=== PATIENT | female | born 1940 | race Two or more races ===

== ENCOUNTER 2018-09-20 11:33 | Emergency (ER) | payer MEDICARE, MEDICAID ==
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
[2018-09-20 14:42] LABS: APPEARANCE,URINE SLIGHTLY-CLOUDY; BILIRUBIN,URINE NEGATIVE (NEGATIVE); COLOR,URINE YELLOW; GLUCOSE, URINE NEGATIVE (NEGATIVE); KETONES,URINE TRACE mg/dL (NEGATIVE); LEUKOCYTE ESTERASE,URINE NEGATIVE (NEGATIVE); NITRITE,URINE NEGATIVE (NEGATIVE); PROTEIN,URINE NEGATIVE (NEGATIVE); URINE SPECIFIC GRAVITY 1.025
[2018-09-20 15:23] LABS: ABSOLUTE BASOPHILS # (AUTO) 0.1 10^3/uL (0.0-0.2); ABSOLUTE EOSINOPHILS # (AUTO) 0.3 10^3/uL (0.0-0.6); ABSOLUTE LYMPHOCYTES (AUTO) 1.6 10^3/uL (0.5-4.7); ABSOLUTE MONOCYTES (AUTO) 0.4 10^3/uL (0.1-1.4); ABSOLUTE NEUT (AUTO) 4.7 10^3/uL (1.7-8.2); BASOPHILS % (AUTO) 0.7 % (0-2); EOSINOPHILS % (AUTO) 3.6 % (0-6); HEMATOCRIT 38.9 % (36.0-47.0); HEMOGLOBIN 13.1 g/dL (12.0-15.5); LYMPHOCYTES % (AUTO) 22.5 % (13-45); MEAN CORPUSCULAR HEMOGLOBIN 31.4 pg (27.0-33.4); MEAN CORPUSCULAR HGB CONC 33.6 g/dL (32.0-36.0); MEAN CORPUSCULAR VOLUME 93 fl (80-97); MONOCYTES % (AUTO) 5.7 % (3-13); PLATELET COUNT 231 10^3/uL (150-450); RED BLOOD COUNT 4.17 10^6/uL (3.72-5.28); RED CELL DISTRIBUTION WIDTH 14.5 % (11.5-14.0); SEGMENTED NEUTROPHILS % (AUTO) 67.5 % (42-78); TOTAL CELLS COUNTED % (AUTO) 100 %
[2018-09-20 15:41] LABS: ALANINE AMINOTRANSFERASE 25 U/L (9-52); ALBUMIN 3.9 g/dL (3.5-5.0); ALKALINE PHOSPHATASE 89 U/L (38-126); ANION GAP 8 (5-19); ASPARTATE AMINO TRANSFERASE 16 U/L (14-36); BILIRUBIN,DIRECT 0.2 mg/dL (0.0-0.4); BILIRUBIN,TOTAL 0.3 mg/dL (0.2-1.3); BLOOD UREA NITROGEN 24 mg/dL (7-20); CALCIUM 9.3 mg/dL (8.4-10.2); CARBON DIOXIDE 28 mmol/L (22-30); CHLORIDE 104 mmol/L (98-107); GLUCOSE 130 mg/dL (75-110); POTASSIUM 3.8 mmol/L (3.6-5.0); SODIUM 139.6 mmol/L (137-145); TOTAL PROTEIN 6.7 g/dL (6.3-8.2)
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
[2018-09-20 19:25] VITALS: BP 142/83
== END 2018-09-20 19:31 | disposition home or self-care (01) ==
LOC: ER 11:33
DX: T76.21XA Adult sexual abuse, suspected, initial encounter (principal); F03.90 Unspecified dementia, unspecified severity, without behavioral disturbance, psychotic disturbance, mood disturbance, and anxiety; Z87.891 Personal history of nicotine dependence
CPT/HCPCS: 36415; 80053; 81001; 84443; 85025; 99285

== ENCOUNTER 2018-11-30 16:38 | Emergency (ER) | payer MEDICARE, MEDICAID ==
[2018-11-30 18:10] LABS: ABSOLUTE EOSINOPHILS # (AUTO) 0.3 10^3/uL (0.0-0.6); ABSOLUTE LYMPHOCYTES (AUTO) 0.8 10^3/uL (0.5-4.7); ABSOLUTE MONOCYTES (AUTO) 0.4 10^3/uL (0.1-1.4); ABSOLUTE NEUT (AUTO) 5.9 10^3/uL (1.7-8.2); BASOPHILS % (AUTO) 0.4 % (0-2); EOSINOPHILS % (AUTO) 3.5 % (0-6); HEMATOCRIT 37.3 % (36.0-47.0); HEMOGLOBIN 12.6 g/dL (12.0-15.5); LYMPHOCYTES % (AUTO) 10.7 % (13-45); MEAN CORPUSCULAR HEMOGLOBIN 31.5 pg (27.0-33.4); MEAN CORPUSCULAR HGB CONC 33.8 g/dL (32.0-36.0); MEAN CORPUSCULAR VOLUME 93 fl (80-97); MONOCYTES % (AUTO) 5.9 % (3-13); PLATELET COUNT 229 10^3/uL (150-450); RED CELL DISTRIBUTION WIDTH 14.6 % (11.5-14.0); SEGMENTED NEUTROPHILS % (AUTO) 79.5 % (42-78); TOTAL CELLS COUNTED % (AUTO) 100 %; WHITE BLOOD COUNT 7.4 10^3/uL (4.0-10.5)
[2018-11-30 18:13] LABS: APPEARANCE,URINE CLEAR; BILIRUBIN,URINE NEGATIVE (NEGATIVE); COLOR,URINE YELLOW; GLUCOSE, URINE NEGATIVE (NEGATIVE); KETONES,URINE NEGATIVE (NEGATIVE); LEUKOCYTE ESTERASE,URINE NEGATIVE (NEGATIVE); NITRITE,URINE NEGATIVE (NEGATIVE); PROTEIN,URINE NEGATIVE (NEGATIVE); URINE SPECIFIC GRAVITY 1.024
[2018-11-30 18:28] LABS: URINE AMPHETAMINES SCREEN NEGATIVE; URINE BARBITURATES SCREEN NEGATIVE; URINE BENZODIAZEPINES SCREEN NEGATIVE; URINE COCAINE SCREEN NEGATIVE; URINE MARIJUANA (THC) SCREEN NEGATIVE; URINE METHADONE SCREEN NEGATIVE; URINE PHENCYCLIDINE SCREEN NEGATIVE
[2018-11-30 18:33] LABS: ALANINE AMINOTRANSFERASE 22 U/L (9-52); ALBUMIN 3.6 g/dL (3.5-5.0); ALKALINE PHOSPHATASE 71 U/L (38-126); ANION GAP 7 (5-19); ASPARTATE AMINO TRANSFERASE 14 U/L (14-36); BILIRUBIN,DIRECT 0.3 mg/dL (0.0-0.4); BILIRUBIN,TOTAL 0.4 mg/dL (0.2-1.3); BLOOD UREA NITROGEN 29 mg/dL (7-20); CALCIUM 9.7 mg/dL (8.4-10.2); CARBON DIOXIDE 26 mmol/L (22-30); CHLORIDE 106 mmol/L (98-107); GLUCOSE 98 mg/dL (75-110); POTASSIUM 3.7 mmol/L (3.6-5.0); SODIUM 139.3 mmol/L (137-145); TOTAL PROTEIN 6.7 g/dL (6.3-8.2)
[2018-11-30 18:34] LABS: ACETAMINOPHEN < 10 ug/mL (10-30); ALCOHOL < 10 mg/dL (NONE DETECTED); SALICYLATE < 1.0 mg/dL (2.0-20.0)
--- NOTE | 2018-11-30 20:15 | EKG REPORT ---
SEVERITY:- NORMAL ECG - SINUS RHYTHM : Confirmed by: Nazanin Varghese MD 30-Nov-2018 20:14:13
--- NOTE | 2018-11-30 23:58 | ER Document Report ---
Addendum entered and electronically signed by RONAN MERINO DO 12/01/18 11:21: Course - Re-evaluation Re-evalutation: 12/01/18 11:20 Patient was seen and evaluated. No acute issues at this time. According to mental health she is cleared at this time to be discharged. We will proceed with discharge planning at this time. - Vital Signs Vital signs: Temp Pulse Resp BP Pulse Ox 98.1 F 60 16 141/45 H 100 12/01/18 04:30 12/01/18 04:30 12/01/18 04:30 12/01/18 04:30 12/01/18 04:30 - Laboratory Result Diagrams: 11/30/18 17:35 11/30/18 17:35 Laboratory results interpreted by me: 11/30/18 11/30/18 11/30/18 17:35 17:35 17:35 RDW 14.6 H Seg Neutrophils % 79.5 H Lymphocytes % 10.7 L BUN 29 H Urine Urobilinogen 2.0 H Salicylates < 1.0 L Acetaminophen < 10 L Discharge - Discharge Clinical Impression: Alzheimer's dementia Qualifiers: Alzheimer's disease onset: unspecified onset Dementia behavioral disturbance: with behavioral disturbance Qualified Code(s): G30.9 - Alzheimer's disease, unspecified Condition: Stable Disposition: HOME, SELF-CARE Additional Instructions: You have been evaluated both medical and behavioral health teams have been deemed appropriate for discharge. Please consult with your outpatient mental health provider if you feel medications need to be adjusted. DEPRESSION: Your evaluation reveals that you have mental depression. While symptoms may be vague, they often include disturbance of sleep, fatigue, loss of appetite, and general loss of interest in life. While depression may be a side effect of drugs, or a reaction to a major change in your life, many cases have no known cause. If depression is acute, and related to a major loss in your life, you can expect it to clear completely with time. If you have been depressed a long time, are prone to repeated bouts of depression or low mood, or have been thinking of suicide, get help. Depression can be treated with anti-depressant medication and counselling. Long-term depression will often take a few weeks to clear, even with appropriate medication. Follow-up care is important. FOLLOW-UP CARE: If you have been referred to a physician for follow-up care, call the physicians office for an appointment as you were instructed or within the next two days.~ If you experience worsening or a significant change in your symptoms, notify the physician immediately or return to the Emergency Department at any time for re-evaluation. Referrals: [facility] [Outside] - Follow up as needed SHIREEN THAKKAR PA [Primary Care Provider] - Follow up as needed Addendum entered and electronically signed by SCOTT RAMON LCSWA 12/01/18 10:10: Discharge - Discharge Clinical Impression: Alzheimer's dementia Qualifiers: Alzheimer's disease onset: unspecified onset Dementia behavioral disturbance: with behavioral disturbance Qualified Code(s): G30.9 - Alzheimer's disease, unspecified; F02.81 - Dementia in other diseases classified elsewhere with behavioral disturbance Clinical Impression: (Ruled Out): Mood disorder NOS Condition: Stable Disposition: HOME, SELF-CARE Additional Instructions: You have been evaluated both medical and behavioral health teams have been deemed appropriate for discharge. Please consult with your outpatient mental health provider if you feel medications need to be adjusted. DEPRESSION: Your evaluation reveals that you have mental depression. While symptoms may be vague, they often include disturbance of sleep, fatigue, loss of appetite, and general loss of interest in life. While depression may be a side effect of drugs, or a reaction to a major change in your life, many cases have no known cause. If depression is acute, and related to a major loss in your life, you can expect it to clear completely with time. If you have been depressed a long time, are prone to repeated bouts of depression or low mood, or have been thinking of suicide, get help. Depression can be treated with anti-depressant medication and counselling. Long-term depression will often take a few weeks to clear, even with appropriate medication. Follow-up care is important. FOLLOW-UP CARE: If you have been referred to a physician for follow-up care, call the physicians office for an appointment as you were instructed or within the next two days.~ If you experience worsening or a significant change in your symptoms, notify the physician immediately or return to the Emergency Department at any time for re-evaluation. Referrals: SHIREEN THAKKAR PA [Primary Care Provider] - Follow up as needed [facility] [Outside] - Follow up as needed Original Note: ED General - General Chief Complaint: Suicidal Ideation Stated Complaint: SUICIDAL IDEATION Time Seen by Provider: 11/30/18 19:13 Primary Care Provider: SHIREEN THAKKAR PA [Primary Care Provider] - Follow up as needed Mode of Arrival: Ambulatory Information source: Patient Notes: This is a 78-year-old female with a history of a depressive disorder who is sent in from the [facility] because of paranoia. There was some discussion on whether she may have been suicidal. She denies any suicidal ideations at this point. Does seem to be a discrepancy between what she reports and what the facility is reporting. TRAVEL OUTSIDE OF THE [place] IN LAST 30 DAYS: No - HPI Onset: Last week Onset/Duration: Gradual Quality of pain: No pain Severity: None Pain Level: Denies Associated symptoms: denies: Chills, Fever, Shortness of breath Exacerbated by: Denies Relieved by: Denies Similar symptoms previously: Yes Recently seen / treated by doctor: Yes - Related Data Allergies/Adverse Reactions: No Known Allergies Allergy (Verified 11/30/18 16:42) Past Medical History - General Information source: Patient, Outside Facility Records - Social History Smoking Status: Never Smoker Cigarette use (# per day): No Chew tobacco use (# tins/day): No Frequency of alcohol use: None Drug Abuse: None Lives with: Family Family History: Reviewed & Not Pertinent Patient has suicidal ideation: Yes Patient has homicidal ideation: No - Medical History Medical History: Negative Renal/ Medical History: Denies: Hx Peritoneal Dialysis Psychiatric Medical History: Reports: Hx Dementia Past Surgical History: Reports: Hx Appendectomy Review of Systems - Review of Systems Constitutional: denies: Chills, Fever EENT: No symptoms reported Cardiovascular: No symptoms reported Respiratory: No symptoms reported Gastrointestinal: No symptoms reported Genitourinary: No symptoms reported Female Genitourinary: No symptoms reported Musculoskeletal: No symptoms reported Skin: No symptoms reported Hematologic/Lymphatic: No symptoms reported Neurological/Psychological: See HPI Physical Exam - Vital signs Vitals: Temp Pulse Resp BP Pulse Ox 98.4 F 71 14 164/53 H 98 11/30/18 16:55 11/30/18 16:55 11/30/18 16:55 11/30/18 16:55 11/30/18 16:55 Notes: Physical exam: GENERAL: 78-year-old female, no acute distress. HEAD: Atraumatic, normocephalic. EYES: Pupils equal round and reactive to light, extraocular movements intact, sclera anicteric, conjunctiva are normal. ENT: TMs normal, nares patent, oropharynx clear without exudates. Moist mucous membranes. NECK: Normal range of motion, supple without obvious mass or JVD. LUNGS: Breath sounds clear to auscultation bilaterally and equal. No wheezes rales or rhonchi. HEART: Regular rate and rhythm without murmurs, rubs or gallops. ABDOMEN: Soft, normoactive bowel sounds. No tenderness to palpation. No guarding, no rebound. No masses appreciated. EXTREMITIES: Normal range of motion, no pitting or edema. No clubbing or cyanosis. NEUROLOGICAL: Cranial nerves II through XII grossly intact. Normal speech, moving all extremities. PSYCH: Patient denies suicidal ideation SKIN: Warm, Dry, normal turgor, no rashes or lesions noted. Course - Re-evaluation Re-evalutation: 11/30/18 23:58 Note: Patient denies suicidal ideation at this time. Due to the discrepancy of what she is reporting with the facilities reporting, we will observe her overnight and have her evaluated by psychiatry in the morning. - Vital Signs Vital signs: Temp Pulse Resp BP Pulse Ox 97.7 F 60 16 147/67 H 100 11/30/18 20:35 11/30/18 20:35 11/30/18 20:35 11/30/18 20:35 11/30/18 20:35 - Laboratory Result Diagrams: 11/30/18 17:35 11/30/18 17:35 Laboratory results interpreted by me: 11/30/18 11/30/18 11/30/18 17:35 17:35 17:35 RDW 14.6 H Seg Neutrophils % 79.5 H Lymphocytes % 10.7 L BUN 29 H Urine Urobilinogen 2.0 H Salicylates < 1.0 L Acetaminophen < 10 L Discharge - Discharge Clinical Impression: Mood disorder NOS Condition: Stable Disposition: HOME, SELF-CARE Referrals: SHIREEN THAKKAR PA [Primary Care Provider] - Follow up as needed
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
[2018-12-01 11:34] VITALS: BP 145/47
== END 2018-12-01 13:42 | disposition home or self-care (01) ==
LOC: ER 16:38
DX: G30.9 Alzheimer's disease, unspecified (principal); F02.81 Dementia in other diseases classified elsewhere, unspecified severity, with behavioral disturbance
CPT/HCPCS: 36415; 80053; 80307; 81001; 85025; 93005; 93010; 99285

== ENCOUNTER 2019-02-04 19:44 | Emergency (ER) | payer MEDICARE, MEDICAID ==
[2019-02-04] MEDS ORDERED: NORMAL SALINE 1000 ML 1,000 ML IV ONE (20:03)
[2019-02-04] MEDS ORDERED: ACETAMINOPHEN 325 MG TABLET PO ONE (20:03)
[2019-02-04 20:35] LABS: HEMATOCRIT 36.8 % (36.0-47.0); HEMOGLOBIN 12.4 g/dL (12.0-15.5); MEAN CORPUSCULAR HEMOGLOBIN 30.8 pg (27.0-33.4); MEAN CORPUSCULAR HGB CONC 33.8 g/dL (32.0-36.0); MEAN CORPUSCULAR VOLUME 91 fl (80-97); PLATELET COUNT 243 10^3/uL (150-450); RED BLOOD COUNT 4.04 10^6/uL (3.72-5.28); RED CELL DISTRIBUTION WIDTH 14.3 % (11.5-14.0); VENOUS BLOOD BASE EXCESS 4.3 mmol/L; VENOUS BLOOD HCO3 28.9 mmol/L (20-32); VENOUS BLOOD PCO2 43.3 mmHg (35-63); VENOUS BLOOD PH 7.44 (7.30-7.42); WHITE BLOOD COUNT 19.3 10^3/uL (4.0-10.5)
--- NOTE | 2019-02-04 20:52 | RADIOLOGY REPORT (SQ) ---
EXAM DESCRIPTION: XR CHEST 1 VIEW COMPLETED DATE/TME: 02/04/2019 20:02 CLINICAL HISTORY: fever COMPARISON: None FINDINGS: Cardiac silhouette is within normal limits. There is atherosclerosis. EKG leads project over the chest. Linear opacities within the lower lungs may represent scar versus subsegmental atelectasis. There is no confluent airspace or pleural disease. There is no acute osseous process visualized. IMPRESSION: Linear opacities within the lower lungs may represent scar versus subsegmental atelectasis.
[2019-02-04 20:53] LABS: ABSOLUTE LYMPHOCYTES# (MANUAL) 1.4 10^3/uL (0.5-4.7); ABSOLUTE MONOCYTES # (MANUAL) 1.4 10^3/uL (0.1-1.4); ABSOLUTE NEUTROPHILS# (MANUAL) 16.6 10^3/uL (1.7-8.2); BASOPHILS % (MANUAL) 0 % (0-2); EOSINOPHILS % (MANUAL) 0 % (0-6); LYMPHOCYTES % (MANUAL) 7 % (13-45); MONOCYTES % (MANUAL) 7 % (3-13); SEGMENTED NEUTROPHILS % (MAN) 86 % (42-78); TOTAL CELLS COUNTED 100
[2019-02-04 20:55] LABS: PLATELET COMMENT ADEQUATE
[2019-02-04 20:58] LABS: ANISOCYTOSIS SLIGHT; POLYCHROMASIA SLIGHT
[2019-02-04 21:40] LABS: ALANINE AMINOTRANSFERASE 33 U/L (9-52); ALBUMIN 3.7 g/dL (3.5-5.0); ALKALINE PHOSPHATASE 104 U/L (38-126); ANION GAP 10 (5-19); ASPARTATE AMINO TRANSFERASE 29 U/L (14-36); BILIRUBIN,DIRECT 0.4 mg/dL (0.0-0.4); BILIRUBIN,TOTAL 0.8 mg/dL (0.2-1.3); BLOOD UREA NITROGEN 18 mg/dL (7-20); CALCIUM 9.5 mg/dL (8.4-10.2); CARBON DIOXIDE 27 mmol/L (22-30); CHLORIDE 100 mmol/L (98-107); GLUCOSE 149 mg/dL (75-110); POTASSIUM 3.7 mmol/L (3.6-5.0); SODIUM 137.2 mmol/L (137-145); TOTAL PROTEIN 6.9 g/dL (6.3-8.2)
--- NOTE | 2019-02-04 21:42 | ER Document Report ---
ED General - General Stated Complaint: FEVER,DISORIENTATION Time Seen by Provider: 02/04/19 19:59 Primary Care Provider: SHIREEN THAKKAR PA [Primary Care Provider] - Follow up tomorrow Cannot obtain history due to: Dementia Notes: Patient is a 78-year-old female 3 of dementia, prior surgical history of appende ctomy, presents with concerns of confusion and fever. Does arrive by EMS from [facility]. The patient states that she does not know why she has been brought to the emergency department stating that she feels completely fine. Apparently staff at [facility] was concerned that the patient was acting abnormally, less functionally independent than her normal and the patient was separately found to be febrile by EMS. The patient apparently had a recent diagnosis of urinary tract infection but is uncertain whether or not she did receive treatment. She denies any complaints at the time of my assessment. She states that she was unaware that she had a fever. The patient denies any dysuria, abdominal pain, headache, neck pain, chest pain or shortness of breath. History may be partially limited secondary to patient's dementia although she is pleasant, alert and oriented to person, place though not year on initial conversation. TRAVEL OUTSIDE OF THE [place] IN LAST 30 DAYS: No - Related Data Allergies/Adverse Reactions: No Known Allergies Allergy (Verified 11/30/18 16:42) Past Medical History - General Information source: Patient Cannot obtain history due to: Dementia - Social History Smoking Status: Never Smoker Frequency of alcohol use: None Drug Abuse: None Lives with: Prison Family History: Reviewed & Not Pertinent Patient has suicidal ideation: No Patient has homicidal ideation: No Renal/ Medical History: Denies: Hx Peritoneal Dialysis Psychiatric Medical History: Reports: Hx Dementia Past Surgical History: Reports: Hx Appendectomy Review of Systems - Review of Systems Notes: Constitutional: Positive for fever. HENT: Negative for sore throat. Eyes: Negative for visual changes. Cardiovascular: Negative for chest pain. Respiratory: Negative for shortness of breath. Gastrointestinal: Negative for abdominal pain, vomiting or diarrhea. Genitourinary: Negative for dysuria. Musculoskeletal: Negative for back pain. Skin: Negative for rash. Neurological: Negative for headaches, weakness or numbness. 10 point ROS negative except as marked above and in HPI. Physical Exam - Vital signs Vitals: Temp Pulse Resp BP Pulse Ox 100.5 F H 95 22 H 160/52 H 95 02/04/19 19:49 02/04/19 19:49 02/04/19 19:49 02/04/19 19:49 02/04/19 19:49 Interpretation: Hypertensive, Febrile Notes: PHYSICAL EXAMINATION: GENERAL: Well-appearing, well-nourished and in no acute distress. HEAD: Atraumatic, normocephalic. EYES: Pupils equal round and reactive to light, extraocular movements intact, sclera anicteric, conjunctiva are normal. ENT: nares patent, oropharynx clear without exudates. Moist mucous membranes. NECK: Normal range of motion, supple without lymphadenopathy LUNGS: Breath sounds clear to auscultation bilaterally and equal. No wheezes rales or rhonchi. HEART: Regular rate and rhythm without murmurs ABDOMEN: Soft, nontender, normoactive bowel sounds. No guarding, no rebound. No masses appreciated. EXTREMITIES: Normal range of motion, no pitting or edema. No cyanosis. NEUROLOGICAL: Face symmetric. Tongue protrudes midline. Extraocular motions intact. Pupils are 2 mm and equally reactive. Normal speech, normal gait. 5 out of 5 strength in both the distal and proximal upper and lower extremities bilaterally. Sensation is grossly intact throughout. Finger to nose testing normal. Pronator drift normal. PSYCH: Alert, oriented to person and place but not year SKIN: Warm, Dry, normal turgor, no rashes or lesions noted. Course - Re-evaluation Re-evalutation: 02/04/19 21:41 Patient presents with concerns of fever and confusion relative to baseline from her nursing facility. The patient denies any complaints at the time of my assessment. Recently hospitalized for urosepsis. Noted to be febrile at time of presentation but vitals are otherwise within acceptable limits labs are pending. Chest x-ray pending. Will reassess after work-up has been completed. 02/04/19 22:44 Patient's vitals have continued to be within normal limits. Heart rate 85, blood pressure 156 and 52 saturating 97% on room air. Work-up is overall quite benign with the exception of a leukocytosis without bandemia which is nonspecific. Chest x-ray is clear. Lactate normal at 1.1. Urinalysis suggestive of a possible hemorrhagic cystitis. Culture has been sent and patient has been given a dose of ceftriaxone here in the emergency department as well as a 7-day course of cephalexin. On repeat exam she remains very well in appearance, no focal abdominal tenderness on exam denies any ongoing complaints. At this time will discharge with return precautions and follow-up recommendations. Verbal discharge instructions given a the bedside and opportunity for questions given. Medication warnings reviewed. Patient is in agreement with this plan and has verbalized understanding of return precautions and the need for primary care follow-up in the next 24-72 hours. - Vital Signs Vital signs: Temp Pulse Resp BP Pulse Ox 98.6 F 95 23 H 157/57 H 96 02/05/19 00:09 02/04/19 19:49 02/04/19 23:58 02/04/19 23:58 02/04/19 23:58 - Laboratory Result Diagrams: 02/04/19 20:14 02/04/19 20:14 Laboratory results interpreted by me: 02/04/19 02/04/19 02/04/19 20:14 20:14 20:14 WBC 19.3 H RDW 14.3 H Seg Neuts % (Manual) 86 H Lymphocytes % (Manual) 7 L Abs Neuts (Manual) 16.6 H VBG pH 7.44 H Glucose 149 H Urine Protein Urine Glucose (UA) Urine Blood 02/04/19 21:53 WBC RDW Seg Neuts % (Manual) Lymphocytes % (Manual) Abs Neuts (Manual) VBG pH Glucose Urine Protein 100 H Urine Glucose (UA) 50 H Urine Blood SMALL H - Diagnostic Test Radiology reviewed: Image reviewed, Reports reviewed Radiology results interpreted by me: 02/05/19 03:59 Chest x-ray: No acute infiltrate Discharge - Discharge Clinical Impression: Fever Qualifiers: Fever type: unspecified Qualified Code(s): R50.9 - Fever, unspecified Leukocytosis Qualifiers: Leukocytosis type: unspecified Qualified Code(s): D72.829 - Elevated white blood cell count, unspecified Urinary tract infection Qualifiers: Urinary tract infection type: site unspecified Hematuria presence: with hematuria Qualified Code(s): N39.0 - Urinary tract infection, site not specified Condition: Stable Disposition: HOME-ASSISTED LIVING Additional Instructions: The exact cause of your fever is uncertain but your urine appears to have a possible infection. Cultures of your blood and urine have been sent. You are being started on antibiotics for treatment of a possible urinary tract infection. You need to return to the emergency room immediately if you have worsening of your symptoms including persistent vomiting, abdominal pain, shortness of breath, pass out, or have any other symptoms that are worrisome to you. Please take all antibodies until they are gone even if you are feeling better. Please follow-up with your primary care physician in the next 24 to 48 hours. Prescriptions: Cephalexin Monohydrate [Keflex 500 mg Capsule] 500 mg PO Q6H 7 Days capsule Referrals: SHIREEN THAKKAR PA [Primary Care Provider] - Follow up tomorrow
[2019-02-04 22:19] LABS: APPEARANCE,URINE CLOUDY; BILIRUBIN,URINE NEGATIVE (NEGATIVE); GLUCOSE, URINE 50 mg/dL (NEGATIVE); KETONES,URINE NEGATIVE (NEGATIVE); LEUKOCYTE ESTERASE,URINE NEGATIVE (NEGATIVE); NITRITE,URINE NEGATIVE (NEGATIVE); PROTEIN,URINE 100 mg/dL (NEGATIVE); URINE SPECIFIC GRAVITY 1.026; UROBILINOGEN,URINE NEGATIVE mg/dL (<2.0)
[2019-02-04 22:22] LABS: COLOR,URINE DARK YELLOW
[2019-02-04] MEDS ORDERED: CEFTRIAXONE INJ 1000 MG VIAL IV ONE (22:37)
[2019-02-05 00:09] VITALS: BP 157/57
== END 2019-02-05 00:20 | disposition home health service (06) ==
LOC: ER 19:44
DX: N39.0 Urinary tract infection, site not specified (principal); R31.9 Hematuria, unspecified; R50.9 Fever, unspecified; D72.829 Elevated white blood cell count, unspecified; F03.90 Unspecified dementia, unspecified severity, without behavioral disturbance, psychotic disturbance, mood disturbance, and anxiety
CPT/HCPCS: 99285; 96361; 96365; 36415; 87086; 82962; 83605; 85025; 80053; 81001; 82803; 71045; J0696; J7030

== ENCOUNTER 2019-02-05 18:03 | Emergency (ER) | payer MEDICARE, MEDICAID ==
--- NOTE | 2019-02-05 22:11 | RADIOLOGY REPORT (SQ) ---
EXAM DESCRIPTION: XR CHEST 1 VIEW COMPLETED DATE/TME: 02/05/2019 21:27 CLINICAL HISTORY: 78 years, Female, weakness, fall COMPARISON: None. NUMBER OF VIEWS: One TECHNIQUE: Single frontal view of the chest was obtained portably LIMITATIONS: None. FINDINGS: Cardiac and mediastinal contours are normal. Bands of opacity are evident about the left lung base, indicating areas of atelectasis or scar. Lungs are otherwise clear. No pleural effusion or pneumothorax. IMPRESSION: No acute disease. copyright 2010 [employer]- All Rights Reserved
[2019-02-05 22:26] LABS: HEMOGLOBIN 11.3 g/dL (12.0-15.5); MEAN CORPUSCULAR HEMOGLOBIN 30.7 pg (27.0-33.4); MEAN CORPUSCULAR HGB CONC 33.2 g/dL (32.0-36.0); MEAN CORPUSCULAR VOLUME 93 fl (80-97); PLATELET COUNT 238 10^3/uL (150-450); RED BLOOD COUNT 3.67 10^6/uL (3.72-5.28); RED CELL DISTRIBUTION WIDTH 14.3 % (11.5-14.0); WHITE BLOOD COUNT 20.5 10^3/uL (4.0-10.5)
--- NOTE | 2019-02-05 22:26 | RADIOLOGY REPORT (SQ) ---
CT BRAIN AND CERVICAL SPINE HISTORY: Trauma. COMPARISON: None. TECHNIQUE: CT scan of the brain and cervical spine without IV contrast. This exam was performed according to our departmental dose-optimization program, which includes automated exposure control, adjustment of the mA and/or kV according to patient size and/or use of iterative reconstruction technique. FINDINGS: BRAIN: There is a 6 mm hyperdensity in the right frontal white matter (axial image 21), which may represent either a vascular malformation versus a tiny contusion. Diffuse involutional changes are present. There are scattered areas of hypoattenuation within the periventricular white matter, which likely represent chronic microvascular ischemia. No evidence of acute infarction, extra-axial fluid collection, or midline shift. No air-fluid levels are seen in the paranasal sinuses to suggest acute sinusitis. No depressed skull fracture. CERVICAL SPINE: No acute cervical fracture or prevertebral soft tissue swelling. There is straightening of the normal cervical lordosis, which may be due to cervical collar, muscle spasm, or patient positioning. Multilevel degenerative disc disease along with facet arthropathy is present. There are multilevel disc bulges but without advanced canal stenosis identified. IMPRESSION: 1. 6 mm hyperdensity in the right frontal white matter, which may represent either a vascular malformation or a tiny contusion. Recommend short-term follow-up imaging to assess for stability. 2. No acute fracture or subluxation of the cervical spine.
[2019-02-05 22:56] LABS: ABSOLUTE LYMPHOCYTES# (MANUAL) 1.8 10^3/uL (0.5-4.7); ABSOLUTE MONOCYTES # (MANUAL) 0.8 10^3/uL (0.1-1.4); ABSOLUTE NEUTROPHILS# (MANUAL) 17.8 10^3/uL (1.7-8.2); BAND NEUTROPHILS % (MANUAL) 2 % (3-5); BASOPHILS % (MANUAL) 0 % (0-2); EOSINOPHILS % (MANUAL) 0 % (0-6); LYMPHOCYTES % (MANUAL) 9 % (13-45); MONOCYTES % (MANUAL) 4 % (3-13); SEGMENTED NEUTROPHILS % (MAN) 85 % (42-78); TOTAL CELLS COUNTED 100
[2019-02-05 22:58] LABS: ANISOCYTOSIS SLIGHT; PLATELET COMMENT ADEQUATE; TOXIC VACUOLATION PRESENT
[2019-02-05 23:50] LABS: ALANINE AMINOTRANSFERASE 60 U/L (9-52); ALBUMIN 3.5 g/dL (3.5-5.0); ALKALINE PHOSPHATASE 137 U/L (38-126); ANION GAP 8 (5-19); ASPARTATE AMINO TRANSFERASE 54 U/L (14-36); BILIRUBIN,DIRECT 0.6 mg/dL (0.0-0.4); BILIRUBIN,TOTAL 0.9 mg/dL (0.2-1.3); BLOOD UREA NITROGEN 22 mg/dL (7-20); CALCIUM 9.1 mg/dL (8.4-10.2); CARBON DIOXIDE 29 mmol/L (22-30); CHLORIDE 100 mmol/L (98-107); GLUCOSE 110 mg/dL (75-110); POTASSIUM 3.5 mmol/L (3.6-5.0)
[2019-02-06 01:49] LABS: APPEARANCE,URINE SLIGHTLY-CLOUDY; BILIRUBIN,URINE SMALL (NEGATIVE); COLOR,URINE AMBER; GLUCOSE, URINE NEGATIVE (NEGATIVE); KETONES,URINE TRACE mg/dL (NEGATIVE); LEUKOCYTE ESTERASE,URINE NEGATIVE (NEGATIVE); NITRITE,URINE NEGATIVE (NEGATIVE); PROTEIN,URINE 100 mg/dL (NEGATIVE)
[2019-02-06] MEDS ORDERED: CEFTRIAXONE 1 GM/D5W RTU 1 GM/50 ML RTUPB IV ONE (02:12)
--- NOTE | 2019-02-06 02:26 | ER Document Report ---
ED General - General Chief Complaint: Fall Stated Complaint: fall Time Seen by Provider: 02/05/19 21:12 Primary Care Provider: SHIREEN THAKKAR PA [Primary Care Provider] - Follow up as needed TRAVEL OUTSIDE OF THE [place] IN LAST 30 DAYS: No - HPI Notes: Patient is a 78-year-old female presented to the emergency department for evaluation after weakness and falls. History is pieced together from nursing notes, EMS. The patient cannot offer me any real history. Evidently she was seen here last night diagnosed with UTI. She has significant weakness. She fell, reportedly again today, although I cannot give any details of that. She has been increasingly weak and confused. Normally according to assisted living staff, she is capable of her ADLs. She has not been today so she was sent here to the department for further evaluation. The patient denies any pain. She states she is not sure why she is here. - Related Data Allergies/Adverse Reactions: No Known Allergies Allergy (Verified 02/05/19 18:04) Past Medical History - General Information source: Emergency Med Personnel, Outside Facility Records Cannot obtain history due to: Dementia - Social History Smoking Status: Unknown if Ever Smoked Family History: Reviewed & Not Pertinent Patient has suicidal ideation: No Patient has homicidal ideation: No Renal/ Medical History: Denies: Hx Peritoneal Dialysis Psychiatric Medical History: Reports: Hx Dementia Past Surgical History: Reports: Hx Appendectomy Review of Systems - Review of Systems -: Yes ROS unobtainable due to patient's medical condition - Dementia Physical Exam - Vital signs Vitals: Temp Pulse Resp BP Pulse Ox 98.6 F 86 18 142/53 H 97 02/05/19 18:16 02/05/19 18:16 02/05/19 18:16 02/05/19 18:16 02/05/19 18:16 - Notes Notes: Vital signs reviewed, please refer to chart. Head is normocephalic, appears atraumatic. No significant tenderness to palpation appreciated. Pupils equal round, reactive to light. Neck is supple without meningismus. Heart is regular rate and rhythm. Lungs are clear to auscultation bilaterally. Abdomen is soft, nontender, normoactive bowel sounds throughout. Extremities without cyanosis, clubbing. Posterior calves are nontender. Peripheral pulses are equal. Skin is warm and dry. Patient is drowsy with GCS of 14. She is disoriented to person and time. States she knows she is in the hospital, unsure which one. She does have some difficulty following directions. No gross facial asymmetry. Moves all 4 extremity spontaneously. Reflexes are symmetrical, sensation is intact. Course - Re-evaluation Re-evalutation: 02/06/19 02:24 Patient presents to the emergency department for evaluation. I did review recent documentation from her last ER visit. She was treated for presumed UTI given the blood and white blood cells in her urine. Today her leukocytosis is actually worsened with a white count of over 20. Urine is dark mily with whites and reds on microscopic examination, but remains nitrate and leukocyte esterase negative. She is given further IV Rocephin, blood cultures and urine cultures are pending. Because of her dementia history, her inability to give me a good history of her fall today, CT scan of the head and neck was ordered. CT scan of the head did reveal a 6 mm lesion in the frontal lobe which could be vascular versus frontal lobe contusion. I spoke with Dr. Amaya regarding this. He does not feel comfortable, given that we do not have trauma or neurosurgery here, keeping patient. I called [facility], spoke to trauma surgeon Dr. Nino. He did accept the patient as a green for the trauma service. 02/06/19 04:20 ALS transport here to take the patient to [facility]. She is stable, still cannot offer me any meaningful history. Patient transferred. - Vital Signs Vital signs: Temp Pulse Resp BP Pulse Ox 98.4 F 86 22 H 140/62 H 97 02/06/19 04:00 02/05/19 18:16 02/06/19 04:00 02/06/19 04:00 02/06/19 04:00 - Laboratory Result Diagrams: 02/05/19 22:00 02/05/19 22:20 Laboratory results interpreted by me: 02/05/19 02/05/19 02/06/19 22:00 22:20 00:58 WBC 20.5 H RBC 3.67 L Hgb 11.3 L Hct 34.0 L RDW 14.3 H Seg Neuts % (Manual) 85 H Band Neutrophils % 2 L Lymphocytes % (Manual) 9 L Abs Neuts (Manual) 17.8 H APTT Potassium 3.5 L BUN 22 H Direct Bilirubin 0.6 H AST 54 H ALT 60 H Alkaline Phosphatase 137 H Urine Protein 100 H Urine Ketones TRACE H Urine Blood SMALL H Urine Bilirubin SMALL H Urine Urobilinogen 4.0 H 02/06/19 02:41 WBC RBC Hgb Hct RDW Seg Neuts % (Manual) Band Neutrophils % Lymphocytes % (Manual) Abs Neuts (Manual) APTT 36.0 H Potassium BUN Direct Bilirubin AST ALT Alkaline Phosphatase Urine Protein Urine Ketones Urine Blood Urine Bilirubin Urine Urobilinogen - Diagnostic Test Radiology reviewed: Reports reviewed Radiology results interpreted by me: 02/06/19 02:25 Chest X-Ray 02/05/19 21:27 IMPRESSION: No acute disease. copyright 2010 [employer]- All Rights Reserved Cervical Spine CT 02/05/19 21:28 IMPRESSION: 1. 6 mm hyperdensity in the right frontal white matter, which may represent either a vascular malformation or a tiny contusion. Recommend short-term follow-up imaging to assess for stability. 2. No acute fracture or subluxation of the cervical spine. Head CT 02/05/19 21:28 IMPRESSION: 1. 6 mm hyperdensity in the right frontal white matter, which may represent either a vascular malformation or a tiny contusion. Recommend short-term follow-up imaging to assess for stability. 2. No acute fracture or subluxation of the cervical spine. Discharge - Discharge Clinical Impression: Leukocytosis Frontal lobe contusion Qualifiers: Encounter type: initial encounter Fall Qualifiers: Encounter type: initial encounter Qualified Code(s): W19.XXXA - Unspecified fall, initial encounter Urinary tract infection Qualifiers: Urinary tract infection type: acute cystitis Condition: Stable Disposition: [facility] Admitting Provider: Dr. Nino Referrals: SHIREEN THAKKAR PA [Primary Care Provider] - Follow up as needed
[2019-02-06 02:56] LABS: INTERNATIONAL RATION (INR) 1.12
[2019-02-06 04:02] VITALS: BP 140/62
== END 2019-02-06 04:15 | disposition short-term general hospital (02) ==
LOC: ER 18:03
DX: S06.339A Contusion and laceration of cerebrum, unspecified, with loss of consciousness of unspecified duration, initial encounter (principal); W19.XXXA Unspecified fall, initial encounter; N30.00 Acute cystitis without hematuria; R53.1 Weakness; F03.90 Unspecified dementia, unspecified severity, without behavioral disturbance, psychotic disturbance, mood disturbance, and anxiety; D72.829 Elevated white blood cell count, unspecified
CPT/HCPCS: 99285; 51701; 96365; 36415; 87040; 87086; 85025; 85610; 85730; 80053; 81001; 71045; 70450; 72125; J0696